=== PATIENT | female | born 1955 | race African-American/Black ===

== ENCOUNTER → 2020-05-05 | Outpatient (CLI) | payer MEDICARE ==
--- NOTE | 2020-05-05 17:57 | CARD ---
MR#: [id number] Date of Study: 05/05/2020 Ordering Physician: ISAURA HUA, Referring Physician: ISAURA HUA, Tech: Opal Viveros APPROVED REPORT EXAM: Two-dimensional and M-mode echocardiogram with Doppler and color Doppler. Other Information Quality : AverageHR: 85bpm INDICATION Palpitations RISK FACTORS Hypertension Hyperlipidemia 2D DIMENSIONS RVDd3.3 (2.9-3.5cm)Left Atrium(2D)4.0 (1.6-4.0cm) IVSd0.9 (0.7-1.1cm)Aortic Root(2D)2.5 (2.0-3.7cm) LVDd5.0 (3.9-5.9cm)LVOT Diameter1.9 (1.8-2.4cm) PWd1.0 (0.7-1.1cm)LVDs3.5 (2.5-4.0cm) FS (%) 31.0 %SV69.4 ml LVEF(%)58.4 (>50%) Aortic Valve AoV Peak Oscar.169.0cm/sAoV VTI32.6cm AO Peak GR.11.4mmHgLVOT Peak Oscar.156.1cm/s LVOT VTI 31.63cmAO Mean GR.5mmHg MIKAYLA (VMAX)1.37zd1XOL (VTI)2.66cm2 Mitral Valve MV E Zhwztodc43.0cm/sMV DECEL [id number] MV A Cctailkn46.8cm/sMV E Mean Gr.3mmHg MV PHN29ueW/A Ratio0.9 MVA (PHT)3.61cm2 TDI E/Lateral E'9.8E/Medial E'13.3 Pulmonary Valve PV Peak Wdugumph95.4cm/sPV Peak Grad.3mmHg Tricuspid Valve TR P. Knbpqnjl894hf/sRAP HLQWDOFG2nfRo TR Peak Gr.75txHrMNJG88wlVm Pulmonary Vein S1 Ewrbfruh50.6cm/sD2 Dxhewxgu12.2cm/s PVa yomtbinv61kfoz LEFT VENTRICLE The left ventricle is normal size. There is normal left ventricular wall thickness. The left ventricu lar systolic function is normal and the ejection fraction is within normal range. The Ejection Fracti on is 55-60%. There is normal LV segmental wall motion. Transmitral Doppler flow pattern is Grade I-a bnormal relaxation pattern. RIGHT VENTRICLE The right ventricle is normal size. There is normal right ventricular wall thickness. The right ventr icular systolic function is normal. ATRIA The left atrium size is normal. The right atrium size is normal. The interatrial septum is intact wit h no evidence for an atrial septal defect or patent foramen ovale as noted on 2-D or Doppler imaging. AORTIC VALVE The aortic valve is normal in structure and function. Doppler and Color Flow revealed no significant aortic regurgitation. There is no significant aortic valvular stenosis. Calculated aortic valve area is 2.71 cm2 with maximum pressure gradient of 14 mmHg and mean pressure gradient of 6 mmHg. MITRAL VALVE The mitral valve is normal in structure and function. There is no evidence of mitral valve prolapse. There is no mitral valve stenosis with an mean gradient of 2.8 mmHg. Doppler and Color-flow revealed trace mitral regurgitation. TRICUSPID VALVE The tricuspid valve is normal in structure and function. Doppler and Color Flow revealed trace tricus pid regurgitation with an estimated PAP of 34 mmHg. There is no tricuspid valve stenosis. PULMONIC VALVE The pulmonic valve is not well visualized. Doppler and Color Flow revealed no pulmonic valvular regur gitation. GREAT VESSELS The aortic root is normal in size. The ascending aorta is normal in size. The IVC is normal in size a nd collapses >50% with inspiration. PERICARDIAL EFFUSION There is no evidence of significant pericardial effusion. Critical Notification Critical Value: No <Conclusion> The left ventricle is normal size. The left ventricular systolic function is normal and the ejection fraction is within normal range. The Ejection Fraction is 55-60%. Doppler and Color Flow revealed no significant aortic regurgitation. There is no significant aortic valvular stenosis. Calculated aortic valve area is 2.71 cm2 with maximum pressure gradient of 14 mmHg and mean pressure gradient of 6 mmHg. Doppler and Color-flow revealed trace mitral regurgitation. Doppler and Color Flow revealed trace tricuspid regurgitation with an estimated PAP of 34 mmHg. Signed by : Nimesh Aparicio MD Electronically Approved : 05/05/2020 17:56:53
== END | disposition home or self-care (01) ==
LOC: ECHO 12:59
PROVIDERS: ATTEND Internal Medicine Cardiovascular Disease
DX: R00.2 Palpitations (principal)
CPT/HCPCS: 93306

== ENCOUNTER → 2021-12-14 | Outpatient (CLI) | payer MEDICARE ==
--- NOTE | 2021-12-14 18:43 | CARD ---
MR#: [id number] Date of Study: 12/14/2021 Ordering Physician: ISAURA HUA, Referring Physician: ISAURA HUA Tech: Danielle Ibrahim [facility] APPROVED REPORT EXAM: Two-dimensional and M-mode echocardiogram with Doppler and color Doppler. Other Information Quality : AverageHR: 85bpm Rhythm : NSR INDICATION Palpitations RISK FACTORS Hypertension 2D DIMENSIONS RVDd2.9 (2.9-3.5cm)Left Atrium(2D)3.8 (1.6-4.0cm) IVSd1.1 (0.7-1.1cm)Aortic Root(2D)2.7 (2.0-3.7cm) LVDd4.5 (3.9-5.9cm)LVOT Diameter2.0 (1.8-2.4cm) PWd1.0 (0.7-1.1cm)LVDs3.0 (2.5-4.0cm) FS (%) 34.0 %SV58.5 ml LVEF(%)63.1 (>50%) Aortic Valve AoV Peak Oscar.166.7cm/sAoV VTI32.0cm AO Peak GR.11.1mmHgLVOT Peak Oscar.77.0cm/s AO Mean GR.5mmHgAVA (VMAX)1.50cm2 Mitral Valve MV E Uhrumbry01.7cm/sMV DECEL HOLX297vv MV A Goowffgh326.9cm/sE/A Ratio0.6 Pulmonary Valve PV Peak Tjsmpuwb226.4cm/s Tricuspid Valve TR P. Ntydfnnw257al/sTR Peak Gr.27mmHg LEFT VENTRICLE The left ventricle is normal size. There is normal left ventricular wall thickness. The left ventricu lar systolic function is normal. The ejection fraction is estimated at 55%. There is normal LV segmen ata wall motion. Transmitral Doppler flow pattern is Grade I-abnormal relaxation pattern. RIGHT VENTRICLE The right ventricle is normal size. There is normal right ventricular wall thickness. The right ventr icular systolic function is normal. ATRIA The left atrium size is normal. The right atrium size is normal. The interatrial septum is intact wit h no evidence for an atrial septal defect or patent foramen ovale as noted on 2-D or Doppler imaging. AORTIC VALVE The aortic valve is normal in structure and function. Doppler and Color Flow revealed no significant aortic regurgitation. There is no aortic valvular vegetation. MITRAL VALVE The mitral valve is normal in structure and function. There is no evidence of mitral valve prolapse. There is no mitral valve stenosis. Doppler and Color-flow revealed mild mitral regurgitation. TRICUSPID VALVE The tricuspid valve is normal in structure and function. Doppler and Color Flow revealed mild tricusp id regurgitation. Estimated 30 mmHg. There is no tricuspid valve stenosis. PULMONIC VALVE The pulmonary valve is normal in structure and function. Doppler and Color Flow revealed trace pulmon ic valvular regurgitation. GREAT VESSELS The aortic root is normal in size. The ascending aorta is normal in size. The IVC is normal in size a nd collapses >50% with inspiration. PERICARDIAL EFFUSION There is no evidence of significant pericardial effusion. Critical Notification Critical Value: No <Conclusion> The left ventricular systolic function is normal. The ejection fraction is estimated at 55%. There is normal LV segmental wall motion. Transmitral Doppler flow pattern is Grade I-abnormal relaxation pattern. Mild mitral regurgitation. Mild tricuspid regurgitation. Estimated 30 mmHg. There is no evidence of significant pericardial effusion. Signed by : Isaura Hua, Electronically Approved : 12/14/2021 18:43:04
== END ==
LOC: ECHO 11:06
PROVIDERS: ATTEND Internal Medicine Cardiovascular Disease
DX: I08.1 Rheumatic disorders of both mitral and tricuspid valves (principal); R00.2 Palpitations
CPT/HCPCS: 93306; C8929